=== PATIENT | female | born 1980 | race American Indian/Alaskan Native ===

== ENCOUNTER 2021-07-15 08:51 | Outpatient (CLI) | payer OTHER ==
--- NOTE | 2021-07-15 10:41 | Fluoroscopy Report ---
BARIUM SWALLOW Indication: MORBID OBESITY. Technique: Single contrast barium technique utilized to evaluate the esophagus. FINDINGS: To begin the exam, swallowing was evaluated in the lateral position under direct fluorosco py. Swallowing was normal. No mucosal irregularity, mass, mass effect, or critical stenosis. There were no abnormal tertiary c ontractions as seen with dysmotility. No gastroesophageal reflux. IMPRESSION: Unremarkable exam. Fluoroscopic time: 1.0 minutes Number of fluoroscopic images: 36 Signer Name: Rich Patterson Jr, MD Signed: 07/15/2021 10:36 AM Workstation Name: [id number]
== END 2021-07-15 08:52 | disposition home or self-care (01) ==
LOC: FLUORO 08:51
PROVIDERS: ATTEND Surgery
DX: E66.01 Morbid (severe) obesity due to excess calories (principal)
CPT/HCPCS: 74220

== ENCOUNTER 2021-08-07 12:11 | Outpatient (CLI) | payer SELFPAY ==
--- NOTE | 2021-08-10 01:12 | Pulmonary Function Test ---
DATE OF VISIT: 08/07/2021 PULMONARY FUNCTION TEST SPIROMETRY: FVC is 3.01 liters, which is 108% of the predicted and FEV1 is 2.63, 114% of the predicted; 2.63 liters, 114% of the predicted. FEV1/FVC ratio is 87 and flow volume loop, FEF 25-75% is 3.94 liters, which is 148% of the predicted. Patient's MVV is 97 liters per minute, which is 51% of the predicted. IMPRESSION: Normal spirometry, except slight decrease in MVV. TID: [id number] RECEIPT: [id number] FRANKY/KALIA cc: Dr. Guillermo Luna
== END 2021-08-07 12:12 | disposition home or self-care (01) ==
LOC: PF 12:11
PROVIDERS: ATTEND Surgery
DX: E66.01 Morbid (severe) obesity due to excess calories (principal); E66.2 Morbid (severe) obesity with alveolar hypoventilation
CPT/HCPCS: 94010

== ENCOUNTER 2021-09-17 06:13 | Day surgery (SDC) | payer OTHER ==
[2021-09-17] MEDS ORDERED: SODIUM CHLORIDE 0.9% 1000 ML 1,000 ML IV SCH (07:00)
--- NOTE | 2021-09-17 07:32 | Anesthesia Day of Surgery ---
Anesthesia Day of Surgery - Day of Surgery Patient Examined: Yes Patient H&P Reviewed: Yes Patient is NPO: Yes
--- NOTE | 2021-09-17 07:32 | Anesthesia Consultation ---
Anesthesia Consult and Med Hx Date of service: 09/17/21 - Airway Anesthetic Teeth Evaluation: Good ROM Head & Neck: Adequate Mental/Hyoid Distance: Adequate Mallampati Class: Class II Intubation Access Assessment: Good - Pulmonary Exam CTA: Yes - Cardiac Exam Cardiac Exam: RRR - Pre-Operative Health Status ASA Pre-Surgery Classification: ASA2 Proposed Anesthetic Plan: MAC - Pulmonary Hx Smoking: No Hx Sleep Apnea: No (SCOTTY PRE SCREEN HIGH RISK) - Cardiovascular System Hx Hypertension: Yes (NO MEDS) - Central Nervous System Hx Psychiatric Problems: No - Hematic Hx Anemia: No - Other Systems Hx Cancer: No Hx Obesity: Yes
[2021-09-17] MEDS ORDERED: LIDOCAINE MPF (2%) 20 MG/1 ML VIAL 5 ML ONE (08:12)
[2021-09-17] MEDS ORDERED: propofoL 200 MG/20 ML VIAL IV ONE ×2 (08:12→08:22)
--- NOTE | 2021-09-17 08:13 | Discharge Summary ---
Providers - Providers Date of Admission: 09/17/2021 Date of discharge: 09/17/21 Attending physician: BENOIT SAPP MD Primary care physician: PAPER WINDER Hospitalization Reason for admission: pre-op egd Condition: Good Procedures: egd with bx Hospital course: Pt presented for a pre-op EGD as part of planning for up coming bariatric surgery. Procedure was uneventful and pt recovered well and was discharged to home. Disposition: 01 HOME / SELF CARE / HOMELESS Final Discharge Diagnosis (Prints w/discharge instructions): dyspepsia, morbid obesity Core Measure Documentation - Palliative Care Palliative Care/ Comfort Measures: Not Applicable - Core Measures Any of the following diagnoses?: none Exam - Physical Exam Narrative exam: unchanged from pre-op Plan Activity: no restrictions Diet: low carbohydrate Follow up with: PRIMARY CAREMD [Primary Care Provider] - 7 Days
--- NOTE | 2021-09-17 08:14 | Operative Report ---
Operative Report Operative Report: DATE: 09/17/2021 SURGERY: Upper endoscopy. SURGEON: Guillermo Luna M.D. PROCEDURE: EGD with biopsy PRE OP DX: morbid obesity, GERD POST OP DX: morbid obesity, GERD TYPE OF ANESTHESIA: MAC. ESTIMATED BLOOD LOSS: None. COMPLICATIONS: None. SPECIMENS REMOVED: antral biopsy FINDINGS: 1. Small hiatal hernia. 2. Otherwise, normal esophagus, stomach and first portion of duodenum. INDICATIONS:INDICATION FOR PROCEDURE: Patient is a 40-year-old female with a long history of morbid obesity. She is planned to have a weight loss procedure and is here for preoperative planning EGD. PROCEDURE DETAILS: After consent was reviewed, patient was taken back to the operating room where patient was placed in the left lateral decubitus position and a bite block was placed in the mouth. After a time-out was called, MAC anesthesia was initiated. I then passed the endoscope into her oropharynx, into her esophagus, visualized the entire esophagus, which was all within normal limits. Z-line was noted to about 35cm from incisors. I then visualized the stomach and the first portion of the duodenum and there were no abnormalities I could clearly visualize except for antral gastritis. A cold forceps biopsy of the antrum was taken and will be sent to pathology to evaluate for H.pylori. I then retroflexed the scope in the stomach and visualized the hiatus and I could see a small hiatal hernia. I then desufflated the stomach and removed the endoscope. Patient tolerated procedure well and was transferred to recovery room in good and stable condition.
--- NOTE | 2021-09-17 17:41 | Post Anesthesia Evaluation ---
- Post Anesthesia Evaluation Patient Participated: Yes Airway Patent: Yes Stable Respiratory Function: Yes Nausea/Vomiting: No Temp > 96.8F: Yes Pain Manageable: Yes Adequeate Hydration: Yes Anesthesia Complications: No Block Receding Appropriately: Not Applicable Patient on Ventilator: No
[2021-09-17 19:58] VITALS: BP 137/92
== END 2021-09-17 09:20 | disposition home or self-care (01) ==
LOC: GIO 06:13
PROVIDERS: ATTEND Surgery
DX: K30 Functional dyspepsia (principal); E66.01 Morbid (severe) obesity due to excess calories; K21.9 Gastro-esophageal reflux disease without esophagitis; K44.9 Diaphragmatic hernia without obstruction or gangrene; K31.89 Other diseases of stomach and duodenum; K29.50 Unspecified chronic gastritis without bleeding; I10 Essential (primary) hypertension; E78.00 Pure hypercholesterolemia, unspecified; Z68.37 Body mass index [BMI] 37.0-37.9, adult; Z79.899 Other long term (current) drug therapy; Z98.890 Other specified postprocedural states
CPT/HCPCS: 43239; 88305; 88342; J2704; J3490; J7120

== ENCOUNTER 2021-09-23 17:10 | Inpatient (IN) | payer OTHER ==
--- NOTE | 2021-09-17 17:57 | Anesthesia Consultation ---
Anesthesia Consult and Med Hx Date of service: 09/23/21 - Airway Anesthetic Teeth Evaluation: Patrick (Veneers) Mallampati Class: Class IV - Pre-Operative Health Status ASA Pre-Surgery Classification: ASA3 Proposed Anesthetic Plan: General - Pulmonary Hx Smoking: No (Normal PFTs) Hx Sleep Apnea: No (SCOTTY PRE SCREEN HIGH RISK) - Cardiovascular System Hx Hypertension: Yes (NO MEDS) Hx Coronary Artery Disease: No (Negative [id number]) - Central Nervous System Hx Psychiatric Problems: No - Gastrointestinal Hx Gastroesophageal Reflux Disease: No - Endocrine Hx Non-Insulin Dependent Diabetes: No (A1C 5.8) - Hematic Hx Anemia: No Hx Sickle Cell Disease: No - Other Systems Hx Cancer: No Hx Obesity: Yes - Additional Comments Anesthesia Medical History Comments: +Medical clearance
[2021-09-23] MEDS: SCOPOLAMINE TRANSDERMAL PATCH 72 HR TD SCH (09:40)
--- NOTE | 2021-09-23 10:08 | Anesthesia Day of Surgery ---
Anesthesia Day of Surgery - Day of Surgery Patient Examined: Yes Patient H&P Reviewed: Yes Patient is NPO: Yes
--- NOTE | 2021-09-23 14:46 | Operative Report ---
Operative Report Operative Report: DATE:09/23/2021 Surgeon: Guillermo Luna MD Kinder Teacher surgeon: Norberto Everett MD Pre-op Dx: morbid obesity Post-op Dx: morbid obesity Procedure: 1. laparoscopic sleeve gastrectomy, Anesthesia: GETA, TAP block EBL: <10ml Specimen: gastric remnant Complication: none immediate Indication: 40 year old female with a history of morbid obesity . Pt is here for sleeve gastrectomy for weight loss to achieve healthier weight and improve or resolve her co-morbidities. She expressed understanding of the risks and benefits. PROCEDURE IN DETAIL: After consent was reviewed, patient was taken back to the operating room, where patient was placed supine on the bed with both arms out. The patient's legs were doubly strapped to the bed. Patient had a foot board in place. Patient had a body warmer placed by anesthesia. General anesthesia was induced with successful endotracheal intubation. Patient was then prepped and draped in normal sterile surgical fashion. After a time-out was called, I made a stab incision in the left subcostal area and placed a Veress needle through this incision and insufflated the abdomen to 18 mmHg pressure. I then counted down a handsbreadth below the xiphoid process in the midline and slightly left lateral injected local anesthetic and made about 1 cm transverse incision. I then used a 5-mm Optiview trocar to enter into the abdomen. There was no gross injury to any intra-abdominal structures. I then placed a 30-degree scope through this port and inspected the abdomen. I then placed a 5-mm port in the right upper quadrant, and 1 epigastric area below the costovertebral angle. I then placed a 15-mm port about a handsbreadth in the right mid abdomen. After which a 5mm port was placed in left upper quadrant port along the anterior axillary line in a similar fashion. A liver retractor was placed to the epigastric port to elevate the left lateral lobe and liver. The anterior gastric fat pad was excised. Starting approximately 6 cm proximal to the pylorus, using a Enseal device the short gastrics were taken all the way to the left elma. Once the lateral portio n of the stomach was mobile anesthesia passed a 40 Turkish bougie along the medial aspect to act as a stent. Using serial firings of endoscopic stapler gold, followed by blue, the lateral portion of the stomach was transected making sure to did not close to the 2 cm to the incisura. All staple loads were supported with Ethicon buttress strips. The sleeve stomach was seen to be without kink obstruction or twisting. The pressure was decreased to 10 mmHg. The staple line was inspected for approximately 5 minutes. There was no significant bleeding appreciated except for a slight loose at the most distal portion of the staple line. Bleeding was minimal and easily controlled with minimal cautery. Vistaseal was then sprayed along the entirety of the staple line. The liver retractor was removed. This was after the gastric remnant was grasped and pulled into the 15 mm trocar site. The stomach was extracted via the 15 mm trocar site. After the fascia had to be stretched with a Ammy clamp to easily remove the stomach, the fascia was closed using a bo emilie device at the level of the fascia with an 0 PDS. trocars were removed under direct visualization. A TAP block was performed in transverse abdominis plane at the mid axillary line bilaterally using 60cc of 0.25% marcaine under direct visualization. All skin incisions were closed with 4-0 Monocryl followed by Dermabond. Patient was awoken, extubated, and taken to recovery stable condition. All counts were correct.
[2021-09-23] MEDS: HYDROmorphone 1 MG/1 ML INJ IV PRN ×2 (15:05→21:00)
[2021-09-23] MEDS: KETOROLAC 30 MG/1 ML INJ IV SCH ×3 (15:16→22:14)
[2021-09-23] MEDS: ONDANSETRON 4 MG/2 ML INJ IV PRN ×2 (15:45→20:50)
--- NOTE | 2021-09-23 16:23 | Post Anesthesia Evaluation ---
- Post Anesthesia Evaluation Patient Participated: Yes Airway Patent: Yes Stable Respiratory Function: Yes Nausea/Vomiting: No Temp > 96.8F: Yes Pain Manageable: Yes Adequeate Hydration: Yes Anesthesia Complications: No
[2021-09-23] MEDS: PANTOPRAZOLE 40 MG INJ IV SCH (16:35)
[~2021-09-23 17:10] MED LIST: ACETAMINOPHEN IV 1,000 MG/100 ML BOTTLE IV NR; BUPIVACAINE/PF (0.25%) 2.5 MG/ML 30 ML VIAL INFILTRATI ONE; ENOXAPARIN 40 MG/0.4 ML INJ SUB-Q NR; GABAPENTIN 500 MG/10 ML ORAL LIQD PO NR; GLYCOPYRROLATE 0.4 MG/2 ML INJ ONE; HYDROcodone/Acetaminophen 7.5-325MG-15ML ORAL LIQD PO PRN; KETAMINE/STERILE WATER 50 MG/ML SYRINGE ONE; LACTATED RINGERS 1,000 ML IV SCH; LIDOCAINE 1%/EPINEPHRINE 1:100,000 VIAL (20 ML) INFILTRATI ONE; LIDOCAINE MPF (2%) 20 MG/1 ML VIAL 5 ML ONE; MAGNESIUM SULFATE 2 GM/50 ML BAG IV ONE; METOCLOPRAMIDE 10 MG/2 ML INJ IV PRN; MIDAZOLAM 2 MG/2 ML INJ IV NR; NEOSTIGMINE 10MG/10 ML INJ MDV ONE; ONDANSETRON 4 MG/2 ML INJ ONE; ROCURONIUM 50 MG/5 ML INJ IV ONE; SODIUM CHLORIDE 0.9% IRR 1,500 ML BOTTLE IR ONE; [UNRECOGNIZED DRUG - OTHER] IV SCH; dexAMETHasone 20 MG/5 ML VIAL ONE; hydrALAZINE 20 MG/1 ML INJ IV PRN; methOCARBAMOL 1,000 MG in SODIUM CHLORIDE 0.9% 250ML 250 ML IV ONE; propofoL 200 MG/20 ML VIAL IV ONE
[2021-09-23] MEDS: SIMETHICONE 80 MG CHEW TAB PO PRN (21:00)
[2021-09-23] MEDS: LACTATED RINGERS 1,000 ML IV SCH (21:15)
[2021-09-23] MEDS: ACETAMINOPHEN IV 1,000 MG/100 ML BOTTLE IV SCH (22:15)
[2021-09-24] MEDS: MORPHINE 2 MG/1 ML INJ IV PRN ×3 (00:45→10:24)
[2021-09-24] MEDS: ONDANSETRON 4 MG/2 ML INJ IV PRN ×3 (00:46→10:24)
[2021-09-24] MEDS: KETOROLAC 30 MG/1 ML INJ IV SCH ×4 (03:18→21:43)
[2021-09-24] MEDS: SIMETHICONE 80 MG CHEW TAB PO PRN ×2 (03:20→17:34)
[2021-09-24] MEDS: LACTATED RINGERS 1,000 ML IV SCH (05:25)
[2021-09-24 06:08] LABS: Hematocrit 39.6 % (30.3-42.9); Hemoglobin 12.7 gm/dl (10.1-14.3); Lymphocytes # (Auto) 1.2 K/mm3 (1.2-5.4); Lymphocytes % (Auto) 11.6 % (13.4-35.0); Mean Corpuscular HGB Conc 32 % (30-34); Mean Corpuscular Volume 92 fl (79-97); Monocytes # (Auto) 0.7 K/mm3 (0.0-0.8); Monocytes % (Auto) 6.8 % (0.0-7.3); Platelet Count 240 K/mm3 (140-440); Red Cell Distribution Width 14.5 % (13.2-15.2)
[2021-09-24 06:36] LABS: Alanine Aminotransferase 15 units/L (7-56); Albumin 4.1 g/dL (3.9-5); Blood Urea Nitrogen 10 mg/dL (7-17); Calcium 8.6 mg/dL (8.4-10.2); Hemolysis Index 4
[2021-09-24] MEDS: ACETAMINOPHEN IV 1,000 MG/100 ML BOTTLE IV SCH ×4 (06:39→12:25)
[2021-09-24 06:42] LABS: BUN/Creatinine Ratio 14
[2021-09-24] MEDS ORDERED: SODIUM CHLORIDE 0.9% 1000 ML 1,000 ML IV ONE (09:51)
[2021-09-24] MEDS: PANTOPRAZOLE 40 MG INJ IV SCH (10:25)
[2021-09-24] MEDS: ENOXAPARIN 40 MG/0.4 ML INJ SUB-Q SCH (10:25)
--- NOTE | 2021-09-24 10:36 | Progress Note ---
Assessment and Plan POD#1 s/p lap sleeve gastrectomy. Afebrile and stable with improving tachycardia. No leukocytosis or fever. Will continue nausea meds as needed and pain control. continue ambulation and possible discharge tomorrow. Subjective Date of service: 09/24/21 Narrative: No acute events overnight. Pt says she is feeling better compared to yesterday with improvement in nausea and pain. She is tolerating sips of liquids and is about to ambulate with PT. Objective Vital Signs - 12hr 09/24/21 09/24/21 09/24/21 00:09 03:42 05:56 Temperature 99.3 F Pulse Rate 109 H 116 H Respiratory 18 Rate Blood Pressure 157/105 Blood Pressure 135/93 [Left] O2 Sat by Pulse 97 97 Oximetry 09/24/21 07:52 Temperature 98.6 F Pulse Rate 110 H Respiratory 20 Rate Blood Pressure 108/64 Blood Pressure [Left] O2 Sat by Pulse 97 Oximetry - General physical appearance well developed, no distress, moderate pain, obese - Respiratory normal expansion, normal respiratory effort - Abdomen soft, other (incisions c/d/i, appropriately tender to palpation) - Neurologic normal coordination - Musculoskeletal normal gait - Psychiatric oriented to time, oriented to person - Labs 09/24/21 04:40 09/24/21 04:40 Diabetes panel 09/24/21 Range/Units 04:40 Sodium 135 L (137-145) mmol/L Potassium 4.3 (3.6-5.0) mmol/L Chloride 100.0 (98-107) mmol/L Carbon Dioxide 21 L (22-30) mmol/L BUN 10 (7-17) mg/dL Creatinine 0.7 (0.6-1.2) mg/dL Glucose 113 H (65-100) mg/dL Calcium 8.6 (8.4-10.2) mg/dL AST 17 (5-40) units/L ALT 15 (7-56) units/L Alkaline Phosphatase 69 (35-129) units/L Total Protein 6.8 (6.3-8.2) g/dL Albumin 4.1 (3.9-5) g/dL Calcium panel 09/24/21 Range/Units 04:40 Calcium 8.6 (8.4-10.2) mg/dL Albumin 4.1 (3.9-5) g/dL Pituitary panel 09/24/21 Range/Units 04:40 Sodium 135 L (137-145) mmol/L Potassium 4.3 (3.6-5.0) mmol/L Chloride 100.0 (98-107) mmol/L Carbon Dioxide 21 L (22-30) mmol/L BUN 10 (7-17) mg/dL Creatinine 0.7 (0.6-1.2) mg/dL Glucose 113 H (65-100) mg/dL Calcium 8.6 (8.4-10.2) mg/dL Adrenal panel 09/24/21 Range/Units 04:40 Sodium 135 L (137-145) mmol/L Potassium 4.3 (3.6-5.0) mmol/L Chloride 100.0 (98-107) mmol/L Carbon Dioxide 21 L (22-30) mmol/L BUN 10 (7-17) mg/dL Creatinine 0.7 (0.6-1.2) mg/dL Glucose 113 H (65-100) mg/dL Calcium 8.6 (8.4-10.2) mg/dL Total Bilirubin 0.40 (0.1-1.2) mg/dL AST 17 (5-40) units/L ALT 15 (7-56) units/L Alkaline Phosphatase 69 (35-129) units/L Total Protein 6.8 (6.3-8.2) g/dL Albumin 4.1 (3.9-5) g/dL
--- NOTE | 2021-09-24 11:46 | Post Anesthesia Evaluation ---
- Post Anesthesia Evaluation Patient Participated: Yes Airway Patent: Yes Stable Respiratory Function: Yes Nausea/Vomiting: Yes (Nausea last night - has resolved today) Temp > 96.8F: Yes Pain Manageable: Yes Adequeate Hydration: Yes Anesthesia Complications: No Block Receding Appropriately: Not Applicable Patient on Ventilator: No
[2021-09-24] MEDS: SCOPOLAMINE TRANSDERMAL PATCH 72 HR TD SCH (20:38)
[2021-09-25] MEDS: LACTATED RINGERS 1,000 ML IV SCH ×2 (00:45→10:35)
[2021-09-25] MEDS: MORPHINE 2 MG/1 ML INJ IV PRN (00:45)
[2021-09-25] MEDS: ONDANSETRON 4 MG/2 ML INJ IV PRN (00:48)
[2021-09-25] MEDS: KETOROLAC 30 MG/1 ML INJ IV SCH ×2 (04:18→10:35)
[2021-09-25 06:01] LABS: Basophils % (Auto) 0.4 % (0.0-1.8); Eosinophils % (Auto) 0.2 % (0.0-4.3); Hematocrit 35.2 % (30.3-42.9); Hemoglobin 11.2 gm/dl (10.1-14.3); Lymphocytes # (Auto) 2.6 K/mm3 (1.2-5.4); Lymphocytes % (Auto) 34.5 % (13.4-35.0); Mean Corpuscular HGB Conc 32 % (30-34); Mean Corpuscular Volume 92 fl (79-97); Monocytes # (Auto) 0.7 K/mm3 (0.0-0.8); Monocytes % (Auto) 9.3 % (0.0-7.3); Platelet Count 198 K/mm3 (140-440); Red Blood Count 3.84 M/mm3 (3.65-5.03); Red Cell Distribution Width 14.8 % (13.2-15.2)
[2021-09-25 06:22] LABS: Alanine Aminotransferase 11 units/L (7-56); Albumin 3.5 g/dL (3.9-5); BUN/Creatinine Ratio 13; Blood Urea Nitrogen 10 mg/dL (7-17); Calcium 8.4 mg/dL (8.4-10.2); Hemolysis Index 21
[2021-09-25] MEDS: PANTOPRAZOLE 40 MG INJ IV SCH (10:30)
[2021-09-25] MEDS: ENOXAPARIN 40 MG/0.4 ML INJ SUB-Q SCH (10:30)
[2021-09-25 11:55] VITALS: BP 129/90
--- NOTE | 2021-09-25 17:49 | Discharge Summary ---
Providers - Providers Date of Admission: 09/23/21 17:15 Date of discharge: 09/25/21 Attending physician: BENOIT SAPP MD 09/23/21 14:37 Physical Therapy Evaluation and Treat [CONS] Routine Comment: Reason For Exam: post op bariatric surgery Primary care physician: [employer] ARCHITECT Hospitalization Reason for admission: s/p lap gastric sleeve Condition: Good Procedures: lap gastric sleeve Hospital course: pt had an uneventful post op course after uncomplicated laparoscopic gastric sleeve for morbid obesity. Patient remains afebrile and stable with exception of transient tachycardia that normalized prior to discharge. Patient had laboratory values that were acceptable limits. Patient by postop day 2 was having adequate pain and nausea control. She was ambulating independently. Tolerating liquids with no problem. Patient was discharged to home on postop day 2 showing no gross clinical signs of leak or bleeding. Patient is to follow-up in the office in 2 weeks. Disposition: 01 HOME / SELF CARE / HOMELESS Final Discharge Diagnosis (Prints w/discharge instructions): Morbid obesity Core Measure Documentation - Palliative Care Palliative Care/ Comfort Measures: Not Applicable - Core Measures Any of the following diagnoses?: none Exam - Constitutional Vitals: Temp Pulse Resp BP Pulse Ox 99.1 F 84 12 129/90 98 09/25/21 04:06 09/25/21 08:17 09/25/21 04:06 09/25/21 08:17 09/25/21 11:00 General appearance: Present: no acute distress, obese - EENT Eyes: Present: PERRL. Absent: scleral icterus ENT: hearing intact - Respiratory Respiratory effort: normal - Cardiovascular Heart Sounds: Present: S1 & S2 - Extremities Extremities: no ischemia - Abdominal General gastrointestinal: Present: other (Incisions clean dry and intact, appropriately tender to palpation) Plan Activity: advance as tolerated Diet: clear liquids Wound: open to air, keep clean and dry Special Instructions: no heavy lifting Follow up with: PRIMARY CAREMD [Primary Care Provider] - 7 Days Forms: Discharge Signature Page
== END 2021-09-25 14:38 | disposition home or self-care (01) | DRG 621 ==
LOC: OR 17:10 → 4A 17:15
PROVIDERS: ADMIT Surgery; ATTEND Surgery
PROC: 0DB64Z3 Excision of Stomach, Percutaneous Endoscopic Approach, Vertical (ICD-10-PCS; principal; 2021-09-23)
DX: E66.01 Morbid (severe) obesity due to excess calories (principal); Z20.822 Contact with and (suspected) exposure to COVID-19; Z68.39 Body mass index [BMI] 39.0-39.9, adult; I10 Essential (primary) hypertension
CPT/HCPCS: 36415; 80053; 81025; 85025; 88307; 88342; 94760; G0378; J1815; J3490; J7120; J7121; Q0162; C9113; J0131; J0360; J1100; J1170; J1650; J1885; J2250; J2270; J2405; J2704; J2710; J3475; J7030; U0003